=== PATIENT | male | born 1945 | race Caucasian/White ===

== ENCOUNTER 2017-12-22 10:18 | Emergency (ER) | payer MEDICARE, BC ==
[~2017-12-22] VITALS: Ht 175.3 cm; Wt 110.8 kg
[2017-12-22 10:24] VITALS: BP 171/67; PULSE 76; RESP 18; TEMP 98.4; O2SAT 96
[2017-12-22] MEDS ORDERED: ROSU5 PO (10:56)
[2017-12-22] MEDS ORDERED: BYST10TA2 PO (10:56)
[2017-12-22] MEDS ORDERED: HYDR25TA5 PO (10:56)
[2017-12-22] MEDS ORDERED: ASPI-516 CHEW (10:56)
[2017-12-22] MEDS ORDERED: TAMS0.4C4 PO (10:56)
[2017-12-22] MEDS ORDERED: LISI40TA PO (10:56)
[2017-12-22] MEDS ORDERED: PANT40TA3 PO (10:56)
--- NOTE | 2017-12-22 11:53 | RADRPT ---
EXAM DATE/TIME: 12/22/2017 11:32 [place] COMPARISON: No previous studies available for comparison. INDICATIONS : Twist injury, right knee pain MEDICAL HISTORY : Cerebrovascular disease. Diabetes mellitus type II. SURGICAL HISTORY : None. ENCOUNTER: Initial ACUITY: 1 day PAIN SCORE: 8/10 LOCATION: Right Knee FINDINGS: Four view examination of the right knee demonstrates no evidence of fracture or dislocation. Mild ost eoarthritis. Small joint effusion. Soft tissue swelling.. CONCLUSION: 1. Soft tissue swelling and small joint effusion. 2. No fracture seen. Wolf Barba MD on December 22, 2017 at 11:48 Board Certified Radiologist. This report was verified electronically.
[2017-12-22] MEDS ORDERED: AMOX500T PO (12:09)
--- NOTE | 2017-12-22 12:09 | PD ---
HPI Chief Complaint: Pain: Acute or Chronic Time Seen by Provider: 11:06 Travel History International Travel<30 days: No Contact w/Intl Traveler<30days: No Traveled to known affect area: No History of Present Illness HPI This is a 72-year-old male here with right knee pain after he stepped down missing a curb twisting the knee this morning. He denies paresthesia or weakness of the extremity. Weightbearing and flexion of the knee causes pain. also complaining of right ear pain 1 week. He denies fever or chills. Reports history of ear infections and followed by ear nose and throat. No drainage from the ear. Into him severity is mild to moderate. PFSH Past Medical History Cancer: Yes (prostate) High Cholesterol: Yes Coronary Artery Disease: Yes Diabetes: Yes Patient Takes Glucophage: Yes GERD: Yes Hypertension: Yes Tetanus Vaccination: < 5 Years Influenza Vaccination: No Past Surgical History Appendectomy: Yes Cholecystectomy: Yes Gynecologic Surgery: Yes (penile implant) Social History Alcohol Use: Yes (occ) Tobacco Use: Yes Allergies-Medications Reported Meds & Prescriptions Reported Meds & Active Scripts Active Reported Aspirin 81 Mg Chew 81 Mg CHEW DAILY Bystolic (Nebivolol) 10 Mg Tab 10 Mg PO HS Tamsulosin (Tamsulosin HCl) 0.4 Mg Cap 0.4 Mg PO HS Hydrochlorothiazide 25 Mg Tab 25 Mg PO DAILY Pantoprazole (Pantoprazole Sodium) 40 Mg Tab 40 Mg PO DAILY Lisinopril 40 Mg Tab 40 Mg PO HS Crestor (Rosuvastatin Calcium) 5 Mg Tab 5 Mg PO HS Review of Systems Except as stated in HPI: all other systems reviewed are Neg General / Constitutional: No: Fever Eyes: No: Visual changes HENT: Positive: Earache, No: Headaches Cardiovascular: No: Chest Pain or Discomfort Respiratory: No: Shortness of Breath Gastrointestinal: No: Abdominal Pain Physical Exam Narrative GENERAL: Alert and well-appearing 72-year-old male SKIN: Warm and dry. No areas of ecchymosis or abrasions HEAD: Normocephalic. Atraumatic EYES: No injection or drainage. Ears/nose/throat: Right TM erythema, cloudy, loss of landmarks. No canal swelling or drainage. NECK: Supple no midline spine tenderness. MUSCULOSKELETAL: No cyanosis. Right lower extremity: Tenderness to the anterior aspect of the knee and over the medial collateral ligament. The joint is stable. Mild swelling. Pain with flexion. 2+ popliteal and dorsal pedis pulse. Normal sensation. Brisk cap refill. Data Data Last Documented VS Vital Signs Date Time Temp Pulse Resp B/P (MAP) Pulse Ox O2 Delivery O2 Flow Rate FiO2 12/22/17 10:24 98.4 76 18 171/67 (101) 96 Room Air Orders Orders Knee, Complete (4vws) (12/22/17 ) MDM Medical Decision Making Medical Screen Exam Complete: Yes Emergency Medical Condition: Yes Differential Diagnosis Knee sprain/strain, fracture, otitis media, otitis externa Narrative Course 72-year-old male here with right knee pain after twisting injury today. Patient did not fall to the ground. No head injury or loss of consciousness. He is also complaining of right ear pain for one week. He's got mild right TM erythema. X-rays negative for fracture. Shows small joint effusion. Elliott wrap applied to the right knee. He is instructed to follow-up with his primary doctor. He'll be treated for otitis media. Diagnosis Primary Impression: Otitis media Qualified Codes: H66.90 - Otitis media, unspecified, unspecified ear Additional Impression: Knee sprain Qualified Codes: S83.91XA - Sprain of unspecified site of right knee, initial encounter Referrals: Primary Care Physician Additional Instructions: Elliott wrap for support. Ice and elevate the extremity. Anabiotic's as prescribed. Follow-up with your primary doctor. Scripts Amoxicillin (Amoxicillin) 500 Mg Tab 500 MG PO TID for Infection for 10 Days, TAB 0 Refills Prov: Waleska Reina 12/22/17 Disposition: 01 DISCHARGE HOME Condition: Stable Waleska Reina Dec 22, 2017 12:09
== END 2017-12-22 12:20 | disposition home or self-care (01) ==
LOC: PHEFT 10:18
DX: S83.91XA Sprain of unspecified site of right knee, initial encounter (principal); H66.91 Otitis media, unspecified, right ear; E78.00 Pure hypercholesterolemia, unspecified; I25.10 Atherosclerotic heart disease of native coronary artery without angina pectoris; E11.9 Type 2 diabetes mellitus without complications; K21.9 Gastro-esophageal reflux disease without esophagitis; I10 Essential (primary) hypertension; W10.1XXA Fall (on)(from) sidewalk curb, initial encounter; X50.1XXA Overexertion from prolonged static or awkward postures, initial encounter
CPT/HCPCS: 73564; 99283